=== PATIENT | female | born 1945 | race Caucasian/White ===

== ENCOUNTER 2021-01-14 10:40 | Outpatient (RCR) | payer MEDICARE, OTHER, SELFPAY ==
[2021-01-14 11:07] VITALS: BP 106/40; PULSE 64; TEMP 36.3
--- NOTE | 2021-01-14 13:11 | HP.PCM_ITS ---
History of Present Illness Date of Service: 01/14/21 Chief Complaint: Nonhealing postsurgical wound History of Wound: Ms. Gomez is a 75 who presents to the wound center for continued care of her non healing surgical wound. History of breast cancer initially diagnosed in 2015 and is status post surgery, radiation and chemotherapy. Routine imaging done in September ( 2020) showed 2 nodules for which she had lumpectomy. Lumpectomy was on the 02 of October. 2 days following, she states that she had significant wound breakdown and infection. Was managed with 3 oral antibiotics and subsequently 2 weeks of IV antibiotics. Has been packing wound with sterile gauze daily. Notes some drainage but not significant per patient. Also had 12 hyperbaric oxygen treatments in [place]. She feels well at this time. Denies chills, fever, nausea, vomiting or change in bowel habit. [facility] Medical History (Updated 01/14/21 @ 13:[address] Desiree Michel MD) History of radiation therapy History of right breast cancer Nonhealing surgical wound ROS Constitutional Constitutional: Denies fatigue, fever(s), frequent falls, headache(s) or increased appetite Eyes Eyes: Denies diplopia, discharge from eye(s), exophthalmos, eye pain, floaters, foreign body or halo effect ENT HEENT: Denies headache(s), hearing loss, mouth pain, mucositis, nasal congestion, nasal discharge or nasal obstruction Cardiovascular Cardiovascular: Denies bluish discoloration of hand/feet, chest pain with activity, claudication, clubbing, dyspnea at rest or easily tiring during activity Respiratory/Chest Respiratory/Chest: Denies change in mental status, difficulty clearing secretions, dusky skin, dyspnea or dyspnea on exertion Gastrointestinal Gastrointestinal: Denies anorexia, chewing difficulty, constipation, cramping, dry heaves or dyspepsia Genitourinary Genitourinary: Denies burning urination, difficulty urinating, hematuria, itching, low back pain or nocturia Musculoskeletal Musculoskeletal: Denies abnormal gait, arthralgias, atrophy, joint stiffness or joint swelling Integumentary Integumentary: Denies erythema, nail changes, new lesions, photosensitivity, pruritus or rash Neurologic Neurologic: Denies abnormal gait, burning sensations, confusion, disequilibrium, dizziness or focal weakness Psychiatric Psychiatric: Denies anhedonia, cognitive impairment, confusion, depression, difficulty concentrating or panic attacks Endocrine Endocrinology: Denies change in body appearance, cold intolerance, excessive sweating, increase in ring/shoe/hat size or polydipsia Allergic/Immunologic Allergic/Immunologic: Denies hives, urticaria, eczemia or wheezing Vital Signs Vital Signs Vital Signs: 01/14/21 11:07 Temperature 97.4 F L Temperature Source Temporal Pulse Rate 64 Blood Pressure 106/40 L Blood Pressure Mean 62 Blood Pressure Source Monitor Blood Pressure Position Semi-Fowlers Blood Pressure Location Left Arm Physical Exam Const alert, oriented x3 and no apparent distress General Appearance: cooperative and comfortable HEENT normocephalic and hearing grossly normal bilaterally Head and Scalp: normal to inspection and atraumatic Face and Sinus: normal facial exam Eyes EOMs intact bilaterally Neck General: normal visual inspection Resp Effort and Inspection: able to speak in complete sentences Auscultation: clear to auscultation bilaterally Cardio Rate: regular rate Rhythm: regular rhythm Heart Sounds: S1 normal and S2 normal GI Palpation: soft and no hepatosplenomegaly; Negative for tender Skin Wounds: wounds noted Neuro oriented x3, CN's II-XII intact bilaterally and moves all extremities Psych Appearance: grossly normal Attitude: calm Speech: normal speech Mood & Affect: euthymic mood Debridement Note Debridement Note Post-Debridement Measurements and Additional Note: Post-Debridement Measurements/Treatment - Nurse 1 - General Ulcer Assessment Start: 01/14/21 11:07 Freq: Status: Active Protocol: [email or web address] Activity Type Activity Date Activity User E-Sign Co-Sign Detail Recorded Client Recorded Date Recorded By Document 01/14/21 11:07 EMILIANO [id number] 01/14/21 11:29 EMILIANO 01/14/21 11:07 - Today's Visit Information Type of service Initial Visit Arrival Mode Ambulatory Patient Identification Verified (Name & Yes ) Vital Signs Temperature (97.8 F-99.1 F) 97.4 F L Temperature Source Temporal Pulse Rate (60-100) 64 Pulse Location Monitor Blood Pressure (90/60-120/80) 106/40 L Blood Pressure Mean 62 Source Monitor Position Semi-Fowlers Blood Pressure Location Left Arm History Since Last Visit- (Skip if this is Patient's initial visit) Have you changed medications since your No last visit? Any new allergies or adverse reactions No Had a fall/change in ADL's that may No increase risk of falls Signs or symptoms of abuse and/or No neglect since last visit Have you been in the hospital since your No last visit? Has dressing in place as prescribed Yes Has compression in place as prescribed N/A Has offloadiing in place as prescribed N/A Experienced any changes in pain level or No management Left Footwear Regular Shoe Right Footwear Regular Shoe Pain Scale: 0-10 Numeric Is Patient Pain Free? Yes WC - Nurse 1 - General Ulcer Measurement Start: 01/14/21 11:07 Freq: Status: Active Protocol: Activity Type Activity Date Activity User E-Sign Co-Sign Detail Recorded Client Recorded Date Recorded By Document 01/14/21 11:07 KR [id number] 01/14/21 11:29 KR 01/14/21 11:07 Wound Center Nurse 1 #1Right Breast -Current Size (cm) - Length 0.4 -Current Size (cm) - Width 0.5 -Current Size (cm) - Depth 1 -Total Square Cm 0.20 -Exudate Amt Medium -Exudate Type Serosanguineous -Wound Margin Distinct, Outline Attached -Granulation Amt Medium (34-66%) -Granulation Quality Red -Necrosis Amt Medium (34-66%) -Necrotic Tissue Type Adherent Slough -Texture (Natalie-wound Skin Appearance) Assessed, Scarring -Moisture (Natalie-wound Skin Appearance) No Abnormality, Assessed -Color (Natalie-wound Skin Appearance) No Abnormality, Assessed -Temperature (Natalie-wound Skin No Abnormality Appearance) (Pt Warm) -Tenderness on Palpation (Natalie-wound No Skin Appearance) -Ulcer Cleansing Rinsed/ Irrigated with Saline -Foul Odor after Cleansing No -Anesthetic Used 5% Lidocaine Gel WC - Nurse 2 - General Ulcer CM Notes Start: 01/14/21 11:07 Freq: Status: Active Protocol: Activity Type Activity Date Activity User E-Sign Co-Sign Detail Recorded Client Recorded Date Recorded By Document 01/14/21 11:47 MW [id number] 01/14/21 11:56 MW 01/14/21 11:47 Wound Center Nurse 2 -Time 11:47 -Correct Patient Yes -Correct Side, Site, Position Yes -Correct Procedure Yes -Procedure Performed Yes -Type of Procedure Debridement -Clinical Debridement Subcutaneous -Tissue Removed Subcutaneous -Post Debridement (cm) - Length 0.3 -Post Debridement (cm) - Width 0.6 -Post Debridement (cm) - Depth 1.7 -Total Square (Post) (cm) 0.18 -Area of Debridement (cm) - Length 0.3 -Area of Debridement (cm) - Width 0.6 -Total Square (Area) (cm) 0.18 -Tunneling Yes -Tunneling Position (O'clock) 3 -Tunneling Distance (cm) 1.5 -Undermining/Tunneling No -Circular Undermining No -Wound/Ulcer Outcome Not Healed -Ulcer Cleansing Rinsed/ Irrigated with Saline -Foul Odor after Cleansing No -Bioengineered Tissue No -Bleeding Controlled with Pressure -Offloading No -Treatment Response Procedure Tolerated Well -Debridement - Subq, 1st 20sq cm Yes Pain Scale: 0-10 Numeric Is Patient Pain Free? Yes - Nurse 3 - General Ulcer D/C NN Start: 01/14/21 11:07 Freq: Status: Active Protocol: Activity Type Activity Date Activity User E-Sign Co-Sign Detail Recorded Client Recorded Date Recorded By Document 01/14/21 11:56 MW [id number] 01/14/21 11:57 MW 01/14/21 11:56 Wound Care Nurse 3 #1Right Breast -Ulcer Cleansing Rinsed/ Irrigated with Saline -Foul Odor after Cleansing No -Negative Pressure Wound Therapy N/A -Primary Dressing Applied Nugauze, Iodoform -Primary Dressing Covered/Secured with Dry Gauze, Secured with Tape -Nugauze, Iodoform 1/ 1 Treatment Response Procedure Tolerated Well Pain Scale: 0-10 Numeric Is Patient Pain Free? Yes Teaching: Wound Center Dressing Your Wound -Person Taught Patient -Teaching Method Discussion, Demonstration -Response to teaching Verbalize understanding WC - Visit Discharge Discharge Condition Stable Ambulatory Status Ambulatory Transportation Private Auto Accompanied by self Medication Reconcilliation completed & No provided to patient/care provider Clinical Summary of Care Provided Yes Wound debrided: Right Breast Type of Debridement: Excisional debridement Anesthesia Used: 4% Lidocaine Solution Depth: Down to and including healthy tissue and in the subcutaneous layer Percentage of wound debrided: 100 Instrument Used: - (1mm) Severity: Fat Layer Exposed Amount of bleeding with debridement: Mild Bleeding Controlled with: Pressure Patient tolerated procedure: Patient tolerated procedure well Charges/Coding Visit Charges Office Visits / Consults: [id number] OV L3 New Procedures Integumentary [id number]: [id number] Lori subq tissue 20 sq cm/< Assessment/Plan Assessment/Plan (1) Nonhealing surgical wound: CODE(S): T81.89XA - Other complications of procedures, not elsewhere classified, initial encounter (2) History of radiation therapy: CODE(S): Z92.3 - Personal history of irradiation (3) History of right breast cancer: CODE(S): Z85.3 - Personal history of malignant neoplasm of breast PLAN: Nonhealing postsurgical wound with a history of breast cancer status post radiation and chemotherapy in 2016. Surgery was on 10/02/2020. Debridement done as documented above, procedure was well-tolerated. Switch to iodoform pack daily. Cover with gauze and tape. Vitamin C, zinc and increase protein discussed. Continue other routine/conservative care. Her questions were answered and she was advised to call with any further questions or concerns. Follow-up in a week. This note was generated with [employer] dictation software. It may contain incorrect words, spelling, and punctuation that were not noted in checking the note before signing.
== END 2021-01-20 23:59 ==
LOC: WC 10:40
PROVIDERS: PCP Family Medicine; Visit Provider Internal Medicine
DX: T81.89XA Other complications of procedures, not elsewhere classified, initial encounter (principal); Z92.3 Personal history of irradiation; Z85.3 Personal history of malignant neoplasm of breast
CPT/HCPCS: 11042; 99203; G0463

== ENCOUNTER 2021-02-11 09:45 | Outpatient (RCR) | payer MEDICARE, OTHER, SELFPAY ==
[2021-01-21 00:35] VITALS: BP 106/40; PULSE 64; TEMP 36.3
[2021-01-21 10:37] VITALS: BP 138/64; PULSE 68; RESP 18; TEMP 36
--- NOTE | 2021-01-21 10:59 | PN.PCM_ITS ---
History of Present Illness Date of Service: 01/21/21 Chief Complaint: Nonhealing postsurgical wound History of Wound: Ms. Gomez is a 75 who presents to the wound center for continued care of her non healing surgical wound. History of breast cancer initially diagnosed in 2015 and is status post surgery, radiation and chemotherapy. Routine imaging done in September ( 2020) showed 2 nodules for which she had lumpectomy. Lumpectomy was on the 02 of October. 2 days following, she states that she had significant wound breakdown and infection. Was managed with 3 oral antibiotics and subsequently 2 weeks of IV antibiotics. Has been packing wound with sterile gauze daily. Notes some drainage but not significant per patient. Also had 12 hyperbaric oxygen treatments in [place]. She feels well at this time. Denies chills, fever, nausea, vomiting or change in bowel habit. Subjective Subjective No new concerns at this time. Denies increased pain or drainage. Objective Data Objective Data Vital Signs: Vital Signs Temp Pulse Resp BP 96.8 F L 68 18 138/64 H 01/21/21 10:37 01/21/21 10:37 01/21/21 10:37 01/21/21 10:37 Charges/Coding Procedures Integumentary [id number]: [id number] Lori subq tissue 20 sq cm/< Physical Exam Const alert, oriented x3 and no apparent distress General Appearance: cooperative and comfortable HEENT normocephalic and hearing grossly normal bilaterally Head and Scalp: normal to inspection and atraumatic Face and Sinus: normal facial exam Eyes EOMs intact bilaterally Neck General: normal visual inspection Resp Effort and Inspection: able to speak in complete sentences Auscultation: clear to auscultation bilaterally Cardio Rate: regular rate Rhythm: regular rhythm Heart Sounds: S1 normal and S2 normal GI Palpation: soft and no hepatosplenomegaly; Negative for tender Skin Wounds: wounds noted Neuro oriented x3, CN's II-XII intact bilaterally and moves all extremities Psych Appearance: grossly normal Attitude: calm Speech: normal speech Mood & Affect: euthymic mood Debridement Note Debridement Note Post-Debridement Measurements and Additional Note: Post-Debridement Measurements/Treatment JIN - Nurse 1 - General Ulcer Assessment Start: 01/21/21 10:36 Freq: Status: Active Protocol: STEFANO Activity Type Activity Date Activity User E-Sign Co-Sign Detail Recorded Client Recorded Date Recorded By Document 01/21/21 10:37 DL [id number] 01/21/21 10:44 DL 01/21/21 10:37 WC - Today's Visit Information Type of service Follow-up Visit (Physician/SENIOR ACCOUNT EXECUTIVE ) Arrival Mode Ambulatory Transfer Assistance None Patient Identification Verified (Name & Yes ) Patient Requires Transmission-Based No Precautions Vital Signs Temperature (97.8 F-99.1 F) 96.8 F L Temperature Source Temporal Pulse Rate (60-100) 68 Pulse Location Monitor Respiratory Rate (12-18) 18 Respiratory rate source Observation Blood Pressure (90/60-120/80) 138/64 H Blood Pressure Mean (mm Hg) 88 Source Monitor History Since Last Visit- (Skip if this is Patient's initial visit) Have you changed medications since your No last visit? Any new allergies or adverse reactions No Had a fall/change in ADL's that may No increase risk of falls Signs or symptoms of abuse and/or No neglect since last visit Have you been in the hospital since your No last visit? Has dressing in place as prescribed Yes Has compression in place as prescribed N/A Has offloadiing in place as prescribed N/A Experienced any changes in pain level or No management Pain Scale: 0-10 Numeric Is Patient Pain Free? Yes - Nurse 1 - General Ulcer Measurement Start: 01/21/21 10:36 Freq: Status: Active Protocol: Activity Type Activity Date Activity User E-Sign Co-Sign Detail Recorded Client Recorded Date Recorded By Document 01/21/21 10:37 DL [id number] 01/21/21 10:44 01/21/21 10:37 Wound Center Nurse 1 #1Right Breast -Current Size (cm) - Length 0.2 -Current Size (cm) - Width 0.2 -Current Size (cm) - Depth 2 -Total Square Cm 0.04 -Photo Taken No -Exudate Amt Small -Exudate Type Serosanguineous -Wound Margin Distinct, Outline Attached -Granulation Amt Small (1-33%) -Granulation Quality Red -Necrosis Amt Small (1-33%) -Structure Exposed N/A -Texture (Natalie-wound Skin Appearance) Scarring -Moisture (Natalie-wound Skin Appearance) No Abnormality -Color (Natalie-wound Skin Appearance) No Abnormality -Tenderness on Palpation (Natalie-wound No Skin Appearance) -Ulcer Cleansing Wound Cleanser -Foul Odor after Cleansing No -Anesthetic Used 4% Lidocaine Solution Wound debrided: Right breast Type of Debridement: Excisional debridement Anesthesia Used: 4% Lidocaine Solution Depth: in the subcutaneous layer Percentage of wound debrided: 100 Tissue Removed: Slough and devitalized tissue Amount of bleeding with debridement: Mild Bleeding Controlled with: Pressure Patient tolerated procedure: Patient tolerated procedure well Assessment/Plan Assessment/Plan (1) Nonhealing surgical wound: CODE(S): T81.89XA - Other complications of procedures, not elsewhere classified, initial encounter (2) History of radiation therapy: CODE(S): Z92.3 - Personal history of irradiation (3) History of right breast cancer: CODE(S): Z85.3 - Personal history of malignant neoplasm of breast PLAN: Some improvement in depth. Debridement done as documented above, procedure was well-tolerated. Continue iodoform, pack daily. Cover with gauze and tape. Vitamin C, zinc and increased protein discussed. Continue other routine/conservative care. Her questions were answered and she was advised to call with any further questions or concerns. Follow-up in a week. This note was generated with [employer] dictation software. It may contain incorrect words, spelling, and punctuation that were not noted in checking the note before signing.
[2021-01-28 10:15] VITALS: BP 144/77; PULSE 69; RESP 18; TEMP 36.1
--- NOTE | 2021-01-28 13:47 | PN.PCM_ITS ---
History of Present Illness Date of Service: 01/28/21 Chief Complaint: Nonhealing postsurgical wound History of Wound: Ms. Gomez is a 75 who presents to the wound center for continued care of her non healing surgical wound. History of breast cancer initially diagnosed in 2015 and is status post surgery, radiation and chemotherapy. Routine imaging done in September ( 2020) showed 2 nodules for which she had lumpectomy. Lumpectomy was on the 02 of October. 2 days following, she states that she had significant wound breakdown and infection. Was managed with 3 oral antibiotics and subsequently 2 weeks of IV antibiotics. Has been packing wound with sterile gauze daily. Notes some drainage but not significant per patient. Also had 12 hyperbaric oxygen treatments in [place]. She feels well at this time. Denies chills, fever, nausea, vomiting or change in bowel habit. Subjective Subjective She reports having a lot of difficulty packing the wound. Has also noted more pain and drainage from the site. Objective Data Objective Data Vital Signs: Vital Signs Temp Pulse Resp BP 97.0 F L 69 18 144/77 H 01/28/21 10:15 01/28/21 10:15 01/28/21 10:15 01/28/21 10:15 Charges/Coding Procedures Integumentary 111xxx-113xx: [id number] Lori subq tissue 20 sq cm/< Physical Exam Const alert, oriented x3 and no apparent distress General Appearance: cooperative and comfortable HEENT normocephalic and hearing grossly normal bilaterally Head and Scalp: normal to inspection and atraumatic Face and Sinus: normal facial exam Eyes EOMs intact bilaterally Neck General: normal visual inspection Resp Effort and Inspection: able to speak in complete sentences Auscultation: clear to auscultation bilaterally Cardio Rate: regular rate Rhythm: regular rhythm Heart Sounds: S1 normal and S2 normal GI Palpation: soft and no hepatosplenomegaly; Negative for tender Skin Wounds: wounds noted Neuro oriented x3, CN's II-XII intact bilaterally and moves all extremities Psych Appearance: grossly normal Attitude: calm Speech: normal speech Mood & Affect: euthymic mood Debridement Note Debridement Note Post-Debridement Measurements and Additional Note: Post-Debridement Measurements/Treatment JIN - Nurse 1 - General Ulcer Assessment Start: 01/21/21 10:36 Freq: Status: Active Protocol: STEFANO Activity Type Activity Date Activity User E-Sign Co-Sign Detail Recorded Client Recorded Date Recorded By Document 01/21/21 10:37 [id number] 01/21/21 10:44 DL Document 01/28/21 10:15 MD [id number] 01/28/21 10:20 MD 01/21/21 01/28/21 10:37 10:15 - Today's Visit Information Type of service Follow-up Visit Follow-up Visit (Physician/CONTRACT ADMINISTRATION MANAGER (Physician/CONTRACT ADMINISTRATION MANAGER ) ) Arrival Mode Ambulatory Ambulatory Transfer Assistance None Patient Identification Verified (Name & Yes ) Patient Requires Transmission-Based No Precautions Vital Signs Temperature (97.8 F-99.1 F) 96.8 F L 97.0 F L Temperature Source Temporal Temporal Pulse Rate (60-100) 68 69 Pulse Location Monitor Monitor Respiratory Rate (12-18) 18 18 Respiratory rate source Observation Observation Blood Pressure (90/60-120/80) 138/64 H 144/77 H Blood Pressure Mean (mm Hg) 88 99 Source Monitor Monitor Position Sitting Blood Pressure Location Left Arm History Since Last Visit- (Skip if this is Patient's initial visit) Have you changed medications since your No last visit? Any new allergies or adverse reactions No Had a fall/change in ADL's that may No increase risk of falls Signs or symptoms of abuse and/or No neglect since last visit Have you been in the hospital since your No last visit? Has dressing in place as prescribed Yes Has compression in place as prescribed N/A Has offloadiing in place as prescribed N/A Experienced any changes in pain level or No management Pain Scale: 0-10 Numeric Is Patient Pain Free? Yes - Nurse 1 - General Ulcer Measurement Start: 01/21/21 10:36 Freq: Status: Active Protocol: Activity Type Activity Date Activity User E-Sign Co-Sign Detail Recorded Client Recorded Date Recorded By Document 01/21/21 10:37 DL [id number] 01/21/21 10:44 Document 01/28/21 10:15 MD [id number] 01/28/21 10:20 MD 01/21/21 01/28/21 10:37 10:15 Wound Center Nurse 1 #1Right Breast -Current Size (cm) - Length 0.2 0.3 -Current Size (cm) - Width 0.2 0.5 -Current Size (cm) - Depth 2 1.0 -Total Square Cm 0.04 0.15 -Photo Taken No -Exudate Amt Small Small -Exudate Type Serosanguineous Serosanguineous -Wound Margin Distinct, Flat & Intact Outline Attached -Granulation Amt Small (1-33%) Large (67-100%) -Granulation Quality Red Pale,[place] -Slough/Fibrin No -Necrosis Amt Small (1-33%) -Structure Exposed N/A -Texture (Natalie-wound Skin Appearance) Scarring Assessed -Moisture (Natalie-wound Skin Appearance) No Abnormality Assessed -Color (Natalie-wound Skin Appearance) No Abnormality Assessed -Temperature (Natalie-wound Skin No Abnormality Appearance) (Pt Warm) -Tenderness on Palpation (Natalie-wound No No Skin Appearance) -Ulcer Cleansing Wound Cleanser Rinsed/ Irrigated with Saline -Foul Odor after Cleansing No -Anesthetic Used 4% Lidocaine 4% Lidocaine Solution Solution Lower Limb Edema Present NA WC - Nurse 2 - General Ulcer CM Notes Start: 01/21/21 10:36 Freq: Status: Active Protocol: Activity Type Activity Date Activity User E-Sign Co-Sign Detail Recorded Client Recorded Date Recorded By Document 01/21/21 11:21 PL [id number] 01/21/21 11:22 PL Document 01/28/21 10:34 MW [id number] 01/28/21 10:40 MW 01/21/21 01/28/21 11:21 10:34 Wound Center Nurse 2 #1Right Breast -Time 10:53 10:35 -Correct Patient Yes Yes -Correct Side, Site, Position Yes Yes -Correct Procedure Yes Yes -Procedure Performed Yes Yes -Type of Procedure Debridement Debridement -Clinical Debridement Subcutaneous Subcutaneous -Tissue Removed Subcutaneous Subcutaneous -Post Debridement (cm) - Length 0.2 0.2 -Post Debridement (cm) - Width 0.5 0.5 -Post Debridement (cm) - Depth 1.5 1.3 -Total Square (Post) (cm) 0.10 0.10 -Area of Debridement (cm) - Length 0.2 0.2 -Area of Debridement (cm) - Width 0.5 0.5 -Total Square (Area) (cm) 0.10 0.10 -Tunneling Yes No -Tunneling Position (O'clock) 3 -Tunneling Distance (cm) 1.2 -Undermining/Tunneling No No -Circular Undermining No No -Wound/Ulcer Outcome Not Healed Not Healed -Ulcer Cleansing Rinsed/ Rinsed/ Irrigated with Irrigated with Saline Saline -Foul Odor after Cleansing No No -Bioengineered Tissue No No -Bleeding Controlled with Pressure -Offloading No -Treatment Response Procedure Tolerated Well -Debridement - Subq, 1st 20sq cm Yes Yes Pain Scale: 0-10 Numeric Is Patient Pain Free? Yes Yes WC - Nurse 3 - General Ulcer D/C NN Start: 01/21/21 10:36 Freq: Status: Active Protocol: Activity Type Activity Date Activity User E-Sign Co-Sign Detail Recorded Client Recorded Date Recorded By Document 01/28/21 10:40 MW [id number] 01/28/21 10:40 MW 01/28/21 10:40 Wound Care Nurse 3 #1Right Breast -Ulcer Cleansing Rinsed/ Irrigated with Saline -Foul Odor after Cleansing No -Negative Pressure Wound Therapy N/A -Primary Dressing Applied Promogran Nuvia Matter -Primary Dressing Covered/Secured with Dry Gauze, Secured with Tape -Promogran Nuvia Matter 1 Treatment Response Procedure Tolerated Well Pain Scale: 0-10 Numeric Is Patient Pain Free? Yes Teaching: Wound Center Dressing Your Wound -Person Taught Patient -Teaching Method Discussion, Demonstration -Response to teaching Verbalize understanding WC - Visit Discharge Discharge Condition Stable Ambulatory Status Ambulatory Transportation Private Auto Accompanied by SELF Medication Reconcilliation completed & No provided to patient/care provider Clinical Summary of Care Provided Yes Wound debrided: Right Breast Type of Debridement: Excisional debridement Anesthesia Used: 4% Lidocaine Solution Depth: Down to and including healthy tissue and in the subcutaneous layer Percentage of wound debrided: 100 Instrument Used: - (1mm) Tissue Removed: slough and devitalized tissue Severity: Fat Layer Exposed Amount of bleeding with debridement: Mild Bleeding Controlled with: Pressure Patient tolerated procedure: Patient tolerated procedure well Assessment/Plan Assessment/Plan (1) Nonhealing surgical wound: CODE(S): T81.89XA - Other complications of procedures, not elsewhere classified, initial encounter (2) History of radiation therapy: CODE(S): Z92.3 - Personal history of irradiation (3) History of right breast cancer: CODE(S): Z85.3 - Personal history of malignant neoplasm of breast PLAN: Some improvement in depth. Debridement done as documented above, procedure was well-tolerated. Cultures taken due to pain and increased drainage. Switch to Nuiva daily with gauze over top. Vitamin C, zinc and increased protein recommended. Continue other routine/conservative care. Her questions were answered and she was advised to call with any further questions or concerns. Follow-up in a week. This note was generated with [employer] dictation software. It may contain incorrect words, spelling, and punctuation that were not noted in checking the note before signing.
[2021-02-11 10:18] VITALS: BP 133/72; PULSE 66; RESP 18; TEMP 36.6
--- NOTE | 2021-02-11 11:09 | PN.PCM_ITS ---
History of Present Illness Date of Service: 02/11/21 Chief Complaint: Nonhealing postsurgical wound History of Wound: Ms. Gomez is a 75 who presents to the wound center for continued care of her non healing surgical wound. History of breast cancer initially diagnosed in 2015 and is status post surgery, radiation and chemotherapy. Routine imaging done in September ( 2020) showed 2 nodules for which she had lumpectomy. Lumpectomy was on the 02 of October. 2 days following, she states that she had significant wound breakdown and infection. Was managed with 3 oral antibiotics and subsequently 2 weeks of IV antibiotics. Has been packing wound with sterile gauze daily. Notes some drainage but not significant per patient. Also had 12 hyperbaric oxygen treatments in [place]. She feels well at this time. Denies chills, fever, nausea, vomiting or change in bowel habit. Subjective Subjective No acute concerns at this time. Tolerating Nuvia well easier to pack the wound. Objective Data Objective Data Vital Signs: Vital Signs Temp Pulse Resp BP 97.9 F 66 18 133/72 H 02/11/21 10:18 02/11/21 10:18 02/11/21 10:18 02/11/21 10:18 Lab / Micro Data Micro: Microbiology 01/28/21 10:40 Wound - Breast, Right Gram Stain - Final 01/28/21 10:40 Wound - Breast, Right Wound Culture - Final Streptococcus agalactiae (B) Staphylococcus epidermidis 01/28/21 10:40 Wound - Breast, Right Anaerobic Culture - Final No anaerobic bacteria isolated. Charges/Coding Procedures Integumentary 111xxx-113xx: [id number] Lori subq tissue 20 sq cm/< Physical Exam Const alert, oriented x3 and no apparent distress General Appearance: cooperative and comfortable HEENT normocephalic and hearing grossly normal bilaterally Head and Scalp: normal to inspection and atraumatic Face and Sinus: normal facial exam Eyes EOMs intact bilaterally Neck General: normal visual inspection Resp Effort and Inspection: able to speak in complete sentences Auscultation: clear to auscultation bilaterally Cardio Rate: regular rate Rhythm: regular rhythm Heart Sounds: S1 normal and S2 normal GI Palpation: soft and no hepatosplenomegaly; Negative for tender Skin Wounds: wounds noted Neuro oriented x3, CN's II-XII intact bilaterally and moves all extremities Psych Appearance: grossly normal Attitude: calm Speech: normal speech Mood & Affect: euthymic mood Debridement Note Debridement Note Post-Debridement Measurements and Additional Note: Post-Debridement Measurements/Treatment JIN - Nurse 1 - General Ulcer Assessment Start: 01/21/21 10:36 Freq: Status: Active Protocol: STEFANO Activity Type Activity Date Activity User E-Sign Co-Sign Detail Recorded Client Recorded Date Recorded By Document 01/21/21 10:37 DL [id number] 01/21/21 10:44 DL Document 01/28/21 10:15 MT [id number] 01/28/21 10:20 MT Document 02/11/21 10:18 DL [id number] 02/11/21 10:23 DL 01/21/21 01/28/21 02/11/21 10:37 10:15 10:18 WC - Today's Visit Information Type of service Follow-up Visit Follow-up Visit Follow-up Visit (Physician/DIRECTOR OF DONOR RELATIONS (Physician/DIRECTOR OF DONOR RELATIONS (Physician/DIRECTOR OF DONOR RELATIONS ) ) ) Arrival Mode Ambulatory Ambulatory Ambulatory Transfer Assistance None None Patient Identification Verified (Name & Yes Yes ) Patient Requires Transmission-Based No No Precautions Vital Signs Temperature (97.8 F-99.1 F) 96.8 F L 97.0 F L 97.9 F Temperature Source Temporal Temporal Temporal Pulse Rate (60-100) 68 69 66 Pulse Location Monitor Monitor Monitor Respiratory Rate (12-18) 18 18 18 Respiratory rate source Observation Observation Observation Blood Pressure (90/60-120/80) 138/64 H 144/77 H 133/72 H Blood Pressure Mean (mm Hg) 88 99 92 Source Monitor Monitor Monitor Position Sitting Blood Pressure Location Left Arm History Since Last Visit- (Skip if this is Patient's initial visit) Have you changed medications since your No No last visit? Any new allergies or adverse reactions No No Had a fall/change in ADL's that may No No increase risk of falls Signs or symptoms of abuse and/or No No neglect since last visit Have you been in the hospital since your No No last visit? Has dressing in place as prescribed Yes Yes Has compression in place as prescribed N/A N/A Has offloadiing in place as prescribed N/A N/A Experienced any changes in pain level or No No management Pain Scale: 0-10 Numeric Is Patient Pain Free? Yes Yes JIN - Nurse 1 - General Ulcer Measurement Start: 01/21/21 10:36 Freq: Status: Active Protocol: Activity Type Activity Date Activity User E-Sign Co-Sign Detail Recorded Client Recorded Date Recorded By Document 01/21/21 10:37 DL [id number] 01/21/21 10:44 DL Document 01/28/21 10:15 MT [id number] 01/28/21 10:20 MT Document 02/11/21 10:18 DL [id number] 02/11/21 10:23 DL 01/21/21 01/28/21 02/11/21 10:37 10:15 10:18 Wound Center Nurse 1 #1Right Breast -Current Size (cm) - Length 0.2 0.3 0.2 -Current Size (cm) - Width 0.2 0.5 0.2 -Current Size (cm) - Depth 2 1.0 1.1 -Total Square Cm 0.04 0.15 0.04 -Photo Taken No No -Exudate Amt Small Small Small -Exudate Type Serosanguineous Serosanguineous Serosanguineous -Wound Margin Distinct, Flat & Intact Distinct, Outline Outline Attached Attached -Granulation Amt Small (1-33%) Large (67-100%) Small (1-33%) -Granulation Quality Red Pale,[place] -Slough/Fibrin No -Necrosis Amt Small (1-33%) Small (1-33%) -Necrotic Tissue Type Adherent Slough -Structure Exposed N/A N/A -Texture (Natalie-wound Skin Appearance) Scarring Assessed Scarring -Moisture (Natalie-wound Skin Appearance) No Abnormality Assessed Dry/Scaly -Color (Natalie-wound Skin Appearance) No Abnormality Assessed No Abnormality -Temperature (Natalie-wound Skin No Abnormality No Abnormality Appearance) (Pt Warm) (Pt Warm) -Tenderness on Palpation (Natalie-wound No No No Skin Appearance) -Ulcer Cleansing Wound Cleanser Rinsed/ Wound Cleanser Irrigated with Saline -Foul Odor after Cleansing No No -Anesthetic Used 4% Lidocaine 4% Lidocaine 4% Lidocaine Solution Solution Solution Lower Limb Edema Present NA WC - Nurse 2 - General Ulcer CM Notes Start: 01/21/21 10:36 Freq: Status: Active Protocol: Activity Type Activity Date Activity User E-Sign Co-Sign Detail Recorded Client Recorded Date Recorded By Document 01/21/21 11:21 PL [id number] 01/21/21 11:22 PL Document 01/28/21 10:34 MW [id number] 01/28/21 10:40 MW Document 02/11/21 10:34 MW [id number] 02/11/21 10:38 MW 01/21/21 01/28/21 02/11/21 11:21 10:34 10:34 Wound Center Nurse 2 #1Right Breast -Time 10:53 10:35 10:34 -Correct Patient Yes Yes Yes -Correct Side, Site, Position Yes Yes Yes -Correct Procedure Yes Yes Yes -Procedure Performed Yes Yes Yes -Type of Procedure Debridement Debridement Debridement -Clinical Debridement Subcutaneous Subcutaneous Subcutaneous -Tissue Removed Subcutaneous Subcutaneous Subcutaneous -Post Debridement (cm) - Length 0.2 0.2 0.2 -Post Debridement (cm) - Width 0.5 0.5 0.3 -Post Debridement (cm) - Depth 1.5 1.3 1.2 -Total Square (Post) (cm) 0.10 0.10 0.06 -Area of Debridement (cm) - Length 0.2 0.2 0.2 -Area of Debridement (cm) - Width 0.5 0.5 0.3 -Total Square (Area) (cm) 0.10 0.10 0.06 -Tunneling Yes No No -Tunneling Position (O'clock) 3 -Tunneling Distance (cm) 1.2 -Undermining/Tunneling No No No -Circular Undermining No No No -Wound/Ulcer Outcome Not Healed Not Healed Not Healed -Ulcer Cleansing Rinsed/ Rinsed/ Rinsed/ Irrigated with Irrigated with Irrigated with Saline Saline Saline -Foul Odor after Cleansing No No No -Bioengineered Tissue No No No -Bleeding Controlled with Pressure Pressure -Offloading No No -Treatment Response Procedure Procedure Tolerated Well Tolerated Well -Debridement - Subq, 1st 20sq cm Yes Yes Yes Pain Scale: 0-10 Numeric Is Patient Pain Free? Yes Yes Yes WC - Nurse 3 - General Ulcer D/C NN Start: 01/21/21 10:36 Freq: Status: Active Protocol: Activity Type Activity Date Activity User E-Sign Co-Sign Detail Recorded Client Recorded Date Recorded By Document 01/28/21 10:40 MW [id number] 01/28/21 10:40 MW Document 02/11/21 10:38 MW [id number] 02/11/21 10:38 MW 01/28/21 02/11/21 10:40 10:38 Wound Care Nurse 3 #1Right Breast -Ulcer Cleansing Rinsed/ Rinsed/ Irrigated with Irrigated with Saline Saline -Foul Odor after Cleansing No No -Negative Pressure Wound Therapy N/A N/A -Primary Dressing Applied Promogran Promogran Nuvia Matter -Primary Dressing Covered/Secured with Dry Gauze, Dry Gauze Secured with Tape -Promogran 2 -Promogran Nuvia Matter 1 Treatment Response Procedure Procedure Tolerated Well Tolerated Well Pain Scale: 0-10 Numeric Is Patient Pain Free? Yes Yes Teaching: Wound Center Dressing Your Wound -Person Taught Patient Patient -Teaching Method Discussion, Discussion, Demonstration Demonstration -Response to teaching Verbalize Verbalize understanding understanding WC - Visit Discharge Discharge Condition Stable Stable Ambulatory Status Ambulatory Ambulatory Transportation Private Auto Private Auto Accompanied by SELF self Medication Reconcilliation completed & No No provided to patient/care provider Clinical Summary of Care Provided Yes Yes Wound debrided: Right breast Type of Debridement: Excisional debridement Anesthesia Used: 4% Lidocaine Solution Depth: Down to and including healthy tissue and in the subcutaneous layer Percentage of wound debrided: 100 Instrument Used: - (1 mm) Tissue Removed: Slough and devitalized tissue Severity: Fat Layer Exposed Amount of bleeding with debridement: Mild Bleeding Controlled with: Pressure Patient tolerated procedure: Patient tolerated procedure well Assessment/Plan Assessment/Plan (1) Nonhealing surgical wound: CODE(S): T81.89XA - Other complications of procedures, not elsewhere classified, initial encounter (2) History of radiation therapy: CODE(S): Z92.3 - Personal history of irradiation (3) History of right breast cancer: CODE(S): Z85.3 - Personal history of malignant neoplasm of breast PLAN: Improving. Debridement done as documented above, procedure was well-tolerated. Culture with minimal growth, possible contaminant. Hold off antibiotics. Switch to Promogran daily. Cover with gauze and tape. Vitamin C, zinc and increased protein recommended. Continue other routine/conservative care. Her questions were answered and she was advised to call with any further questions or concerns. Follow-up in a week. This note was generated with [employer] software. It may contain incorrect words, spelling, and punctuation that were not noted in checking the note before signing.
== END 2021-02-20 23:59 ==
LOC: WC 09:45
PROVIDERS: PCP Family Medicine; Visit Provider Internal Medicine
DX: T81.89XA Other complications of procedures, not elsewhere classified, initial encounter (principal); Z92.3 Personal history of irradiation; Z85.3 Personal history of malignant neoplasm of breast
CPT/HCPCS: 11042; 87070; 87075; 87077; 87186; 87205

== ENCOUNTER 2021-03-18 09:30 | Outpatient (RCR) | payer MEDICARE, OTHER, SELFPAY ==
[2021-02-21 00:34] VITALS: BP 133/72; PULSE 66; RESP 18; TEMP 36.6
[2021-03-04 09:44] VITALS: BP 108/66; PULSE 68; RESP 18; TEMP 36.3
--- NOTE | 2021-03-04 12:38 | PN.PCM_ITS ---
History of Present Illness Date of Service: 03/04/21 Chief Complaint: Nonhealing postsurgical wound History of Wound: Ms. Gomez is a 75 who presents to the wound center for continued care of her non healing surgical wound. History of breast cancer initially diagnosed in 2015 and is status post surgery, radiation and chemotherapy. Routine imaging done in September ( 2020) showed 2 nodules for which she had lumpectomy. Lumpectomy was on the 02 of October. 2 days following, she states that she had significant wound breakdown and infection. Was managed with 3 oral antibiotics and subsequently 2 weeks of IV antibiotics. Has been packing wound with sterile gauze daily. Notes some drainage but not significant per patient. Also had 12 hyperbaric oxygen treatments in [place]. She feels well at this time. Denies chills, fever, nausea, vomiting or change in bowel habit. Subjective Subjective Not been here in over 2 weeks, was away in [place]. Did see her surgeon and no concerns were noted per patient. Has been applying Promogran daily as instructed. She noted mild increase in drainage but otherwise wound is said to have been stable. Objective Data Objective Data Vital Signs: Vital Signs Temp Pulse Resp BP 97.3 F L 68 18 108/66 03/04/21 09:44 03/04/21 09:44 03/04/21 09:44 03/04/21 09:44 Charges/Coding Procedures Integumentary 111xxx-113xx: [id number] Lori subq tissue 20 sq cm/< Physical Exam Const alert, oriented x3 and no apparent distress General Appearance: cooperative and comfortable HEENT normocephalic and hearing grossly normal bilaterally Head and Scalp: normal to inspection and atraumatic Face and Sinus: normal facial exam Eyes EOMs intact bilaterally Neck General: normal visual inspection Resp Effort and Inspection: able to speak in complete sentences GI Palpation: soft and no hepatosplenomegaly; Negative for tender Skin Wounds: wounds noted Neuro oriented x3, CN's II-XII intact bilaterally and moves all extremities Psych Appearance: grossly normal Attitude: calm Speech: normal speech Mood & Affect: euthymic mood Debridement Note Debridement Note Post-Debridement Measurements and Additional Note: Post-Debridement Measurements/Treatment JIN - Nurse 1 - General Ulcer Assessment Start: 03/04/21 09:44 Freq: Status: Active Protocol: STEFANO Activity Type Activity Date Activity User E-Sign Co-Sign Detail Recorded Client Recorded Date Recorded By Document 03/04/21 09:44 DL [id number] 03/04/21 09:50 DL 03/04/21 09:44 WC - Today's Visit Information Type of service Follow-up Visit (Physician/CLERK STENOGRAPHER ) Arrival Mode Ambulatory Transfer Assistance None Patient Identification Verified (Name & Yes ) Patient Requires Transmission-Based No Precautions Vital Signs Temperature (97.8 F-99.1 F) 97.3 F L Temperature Source Temporal Pulse Rate (60-100) 68 Pulse Location Monitor Respiratory Rate (12-18) 18 Respiratory rate source Observation Blood Pressure (90/60-120/80) 108/66 Blood Pressure Mean (mm Hg) 80 Source Monitor History Since Last Visit- (Skip if this is Patient's initial visit) Have you changed medications since your No last visit? Any new allergies or adverse reactions No Had a fall/change in ADL's that may No increase risk of falls Signs or symptoms of abuse and/or No neglect since last visit Have you been in the hospital since your No last visit? Has dressing in place as prescribed Yes Has compression in place as prescribed N/A Has offloadiing in place as prescribed N/A Experienced any changes in pain level or No management Pain Scale: 0-10 Numeric Is Patient Pain Free? Yes WC - Nurse 1 - General Ulcer Measurement Start: 03/04/21 09:44 Freq: Status: Active Protocol: Activity Type Activity Date Activity User E-Sign Co-Sign Detail Recorded Client Recorded Date Recorded By Document 03/04/21 09:44 DL [id number] 03/04/21 09:50 DL 03/04/21 09:44 Wound Center Nurse 1 #1Right Breast -Current Size (cm) - Length 0.2 -Current Size (cm) - Width 0.2 -Current Size (cm) - Depth 0.2 -Total Square Cm 0.04 -Photo Taken No -Exudate Amt None Present -Wound Margin Flat & Intact -Granulation Amt Small (1-33%) -Granulation Quality Red -Necrosis Amt None Present (0 %) -Structure Exposed N/A -Texture (Natalie-wound Skin Appearance) Scarring -Moisture (Natalie-wound Skin Appearance) No Abnormality -Color (Natalie-wound Skin Appearance) No Abnormality -Tenderness on Palpation (Natalie-wound No Skin Appearance) -Ulcer Cleansing Wound Cleanser -Foul Odor after Cleansing No -Anesthetic Used 4% Lidocaine Solution - Nurse 2 - General Ulcer CM Notes Start: 03/04/21 09:44 Freq: Status: Active Protocol: Activity Type Activity Date Activity User E-Sign Co-Sign Detail Recorded Client Recorded Date Recorded By Document 03/04/21 10:12 WI [id number] 03/04/21 10:17 WI 03/04/21 10:12 Wound Center Nurse 2 -Time 10:13 -Correct Patient Yes -Correct Side, Site, Position Yes -Correct Procedure Yes -Procedure Performed Yes -Type of Procedure Debridement -Clinical Debridement Subcutaneous -Tissue Removed Subcutaneous -Post Debridement (cm) - Length 0.2 -Post Debridement (cm) - Width 0.3 -Post Debridement (cm) - Depth 1.5 -Total Square (Post) (cm) 0.06 -Area of Debridement (cm) - Length 0.2 -Area of Debridement (cm) - Width 0.3 -Total Square (Area) (cm) 0.06 -Tunneling No -Undermining/Tunneling No -Circular Undermining No -Wound/Ulcer Outcome Not Healed -Ulcer Cleansing Rinsed/ Irrigated with Saline -Foul Odor after Cleansing No -Bioengineered Tissue No -Bleeding Controlled with Pressure -Offloading No -Treatment Response Procedure Tolerated Well -Debridement - Subq, 1st 20sq cm Yes Pain Scale: 0-10 Numeric Is Patient Pain Free? Yes - Nurse 3 - General Ulcer D/C NN Start: 03/04/21 09:44 Freq: Status: Active Protocol: Activity Type Activity Date Activity User E-Sign Co-Sign Detail Recorded Client Recorded Date Recorded By Document 03/04/21 10:17 WI [id number] 03/04/21 10:20 [place] 03/04/21 10:17 Wound Care Nurse 3 #1Right Breast -Primary Dressing Applied Promogran -Primary Dressing Covered/Secured with Dry Gauze, Secured with Tape -Promogran 1 - Visit Discharge Discharge Condition Stable Ambulatory Status Ambulatory Transportation Private Auto Medication Reconcilliation completed & No provided to patient/care provider Clinical Summary of Care Provided Yes Notes: change dressing daily. Wound debrided: Right Breast Type of Debridement: Excisional debridement Anesthesia Used: 4% Lidocaine Solution Depth: Down to and including healthy tissue and in the subcutaneous layer Percentage of wound debrided: 100 Instrument Used: - (1mm) Severity: Fat Layer Exposed Amount of bleeding with debridement: Mild Bleeding Controlled with: Pressure Patient tolerated procedure: Patient tolerated procedure well Assessment/Plan Assessment/Plan (1) Nonhealing surgical wound: CODE(S): T81.89XA - Other complications of procedures, not elsewhere classified, initial encounter (2) History of radiation therapy: CODE(S): Z92.3 - Personal history of irradiation (3) History of right breast cancer: CODE(S): Z85.3 - Personal history of malignant neoplasm of breast PLAN: Some worsening in depth. Has not been here in 2 weeks. Debridement done as documented above, procedure was well-tolerated. Culture with minimal growth, possible contaminant. Continue Promogran daily. Moisten with saline. Cover with gauze and tape. Vitamin C, zinc and increased protein recommended. Continue other routine/conservative care. Her questions were answered and she was advised to call with any further questions or concerns. Follow-up in 2 weeks. This note was generated with [employer] dictation software. It may contain incorrect words, spelling, and punctuation that were not noted in checking the note before signing.
[2021-03-18 09:24] VITALS: BP 117/67; RESP 18; TEMP 36.9
--- NOTE | 2021-03-18 10:03 | PN.PCM_ITS ---
History of Present Illness Date of Service: 03/18/21 Chief Complaint: Nonhealing postsurgical wound History of Wound: Ms. Gomez is a 75 who presents to the wound center for continued care of her non healing surgical wound. History of breast cancer initially diagnosed in 2015 and is status post surgery, radiation and chemotherapy. Routine imaging done in September ( 2020) showed 2 nodules for which she had lumpectomy. Lumpectomy was on the 02 of October. 2 days following, she states that she had significant wound breakdown and infection. Was managed with 3 oral antibiotics and subsequently 2 weeks of IV antibiotics. Has been packing wound with sterile gauze daily. Notes some drainage but not significant per patient. Also had 12 hyperbaric oxygen treatments in [place]. She feels well at this time. Denies chills, fever, nausea, vomiting or change in bowel habit. Subjective Subjective No new concerns at this time. Denies any significant drainage. Objective Data Objective Data Vital Signs: Vital Signs Temp Pulse Resp BP 98.5 F 68 18 117/67 03/18/21 09:24 03/04/21 09:44 03/18/21 09:24 03/18/21 09:24 Charges/Coding Procedures Integumentary 111xxx-113xx: [id number] Lori subq tissue 20 sq cm/< Physical Exam Const alert, oriented x3 and no apparent distress General Appearance: cooperative and comfortable HEENT normocephalic and hearing grossly normal bilaterally Head and Scalp: normal to inspection and atraumatic Face and Sinus: normal facial exam Eyes EOMs intact bilaterally Neck General: normal visual inspection Resp Effort and Inspection: able to speak in complete sentences GI Palpation: soft; Negative for tender Skin Wounds: wounds noted Neuro oriented x3, CN's II-XII intact bilaterally and moves all extremities Psych Appearance: grossly normal Attitude: calm Speech: normal speech Mood & Affect: euthymic mood Debridement Note Debridement Note Post-Debridement Measurements and Additional Note: Post-Debridement Measurements/Treatment WC - Nurse 1 - General Ulcer Assessment Start: 03/04/21 09:44 Freq: Status: Active Protocol: JIN.ROMA Activity Type Activity Date Activity User E-Sign Co-Sign Detail Recorded Client Recorded Date Recorded By Document 03/04/21 09:44 DL [id number] 03/04/21 09:50 DL Document 03/18/21 09:24 DL [id number] 03/18/21 09:29 DL 03/04/21 03/18/21 09:44 09:24 - Today's Visit Information Type of service Follow-up Visit Follow-up Visit (Physician/CEMENT MASON APPRENTICE (Physician/CEMENT MASON APPRENTICE ) ) Arrival Mode Ambulatory Ambulatory Transfer Assistance None None Patient Identification Verified (Name & Yes Yes ) Patient Requires Transmission-Based No No Precautions Vital Signs Temperature (97.8 F-99.1 F) 97.3 F L 98.5 F Temperature Source Temporal Temporal Pulse Rate (60-100) 68 Pulse Location Monitor Respiratory Rate (12-18) 18 18 Respiratory rate source Observation Observation Blood Pressure (90/60-120/80) 108/66 117/67 Blood Pressure Mean (mm Hg) 80 83 Source Monitor Monitor History Since Last Visit- (Skip if this is Patient's initial visit) Have you changed medications since your No No last visit? Any new allergies or adverse reactions No No Had a fall/change in ADL's that may No No increase risk of falls Signs or symptoms of abuse and/or No No neglect since last visit Have you been in the hospital since your No No last visit? Has dressing in place as prescribed Yes Yes Has compression in place as prescribed N/A Yes Has offloadiing in place as prescribed N/A N/A Experienced any changes in pain level or No No management Pain Scale: 0-10 Numeric Is Patient Pain Free? Yes Yes - Nurse 1 - General Ulcer Measurement Start: 03/04/21 09:44 Freq: Status: Active Protocol: Activity Type Activity Date Activity User E-Sign Co-Sign Detail Recorded Client Recorded Date Recorded By Document 03/04/21 09:44 DL [id number] 03/04/21 09:50 DL Document 03/18/21 09:24 [id number] 03/18/21 09:29 DL 03/04/21 03/18/21 09:44 09:24 Wound Center Nurse 1 #1Right Breast -Current Size (cm) - Length 0.2 0.2 -Current Size (cm) - Width 0.2 0.2 -Current Size (cm) - Depth 0.2 0.6 -Total Square Cm 0.04 0.04 -Photo Taken No No -Exudate Amt None Present None Present -Wound Margin Flat & Intact Distinct, Outline Attached -Granulation Amt Small (1-33%) None Present (0 %) -Granulation Quality Red -Necrosis Amt None Present (0 None Present (0 %) %) -Structure Exposed N/A -Texture (Natalie-wound Skin Appearance) Scarring Assessed, Scarring -Moisture (Natalie-wound Skin Appearance) No Abnormality No Abnormality, Assessed -Color (Natalie-wound Skin Appearance) No Abnormality No Abnormality, Assessed -Temperature (Natalie-wound Skin No Abnormality Appearance) (Pt Warm) -Tenderness on Palpation (Natalie-wound No No Skin Appearance) -Ulcer Cleansing Wound Cleanser Rinsed/ Irrigated with Saline -Foul Odor after Cleansing No No -Anesthetic Used 4% Lidocaine 5% Lidocaine Solution Gel WC - Nurse 2 - General Ulcer CM Notes Start: 03/04/21 09:44 Freq: Status: Active Protocol: Activity Type Activity Date Activity User E-Sign Co-Sign Detail Recorded Client Recorded Date Recorded By Document 03/04/21 10:12 MT [id number] 03/04/21 10:17 MT Document 03/18/21 09:49 MW [id number] 03/18/21 09:53 MW 03/04/21 03/18/21 10:12 09:49 Wound Center Nurse 2 #1Right Breast -Time 10:13 09:51 -Correct Patient Yes Yes -Correct Side, Site, Position Yes Yes -Correct Procedure Yes Yes -Procedure Performed Yes Yes -Type of Procedure Debridement Debridement -Clinical Debridement Subcutaneous Subcutaneous -Tissue Removed Subcutaneous Subcutaneous -Post Debridement (cm) - Length 0.2 0.2 -Post Debridement (cm) - Width 0.3 0.3 -Post Debridement (cm) - Depth 1.5 1.0 -Total Square (Post) (cm) 0.06 0.06 -Area of Debridement (cm) - Length 0.2 0.2 -Area of Debridement (cm) - Width 0.3 0.3 -Total Square (Area) (cm) 0.06 0.06 -Tunneling No Yes -Tunneling Position (O'clock) 13 -Tunneling Distance (cm) 1.3 -Undermining/Tunneling No No -Circular Undermining No No -Wound/Ulcer Outcome Not Healed Not Healed -Ulcer Cleansing Rinsed/ Rinsed/ Irrigated with Irrigated with Saline Saline -Foul Odor after Cleansing No No -Bioengineered Tissue No No -Bleeding Controlled with Pressure Pressure -Offloading No No -Treatment Response Procedure Procedure Tolerated Well Tolerated Well -Debridement - Subq, 1st 20sq cm Yes Yes Pain Scale: 0-10 Numeric Is Patient Pain Free? Yes Yes - Nurse 3 - General Ulcer D/C NN Start: 03/04/21 09:44 Freq: Status: Active Protocol: Activity Type Activity Date Activity User E-Sign Co-Sign Detail Recorded Client Recorded Date Recorded By Document 03/04/21 10:17 MT [id number] 03/04/21 10:20 MT Document 03/18/21 09:54 MW [id number] 03/18/21 09:55 MW 03/04/21 03/18/21 10:17 09:54 Wound Care Nurse 3 #1Right Breast -Ulcer Cleansing Rinsed/ Irrigated with Saline -Foul Odor after Cleansing No -Negative Pressure Wound Therapy N/A -Primary Dressing Applied Promogran Promogran -Primary Dressing Covered/Secured with Dry Gauze, Dry Gauze Secured with Tape -Promogran 1 1 Treatment Response Procedure Tolerated Well Pain Scale: 0-10 Numeric Is Patient Pain Free? Yes Teaching: Wound Center Dressing Your Wound -Person Taught Patient -Teaching Method Discussion, Demonstration -Response to teaching Verbalize understanding WC - Visit Discharge Discharge Condition Stable Stable Ambulatory Status Ambulatory Ambulatory Transportation Private Auto Private Auto Accompanied by self Medication Reconcilliation completed & No No provided to patient/care provider Clinical Summary of Care Provided Yes Yes Notes: change dressing daily. Wound debrided: Right breast Type of Debridement: Excisional debridement Anesthesia Used: 4% Lidocaine Solution Depth: Down to and including healthy tissue and in the subcutaneous layer Percentage of wound debrided: 100 Tissue Removed: Slough and devitalized tissue Severity: Fat Layer Exposed Amount of bleeding with debridement: Mild Bleeding Controlled with: Pressure Patient tolerated procedure: Patient tolerated procedure well Assessment/Plan Assessment/Plan (1) Nonhealing surgical wound: CODE(S): T81.89XA - Other complications of procedures, not elsewhere classified, initial encounter (2) History of radiation therapy: CODE(S): Z92.3 - Personal history of irradiation (3) History of right breast cancer: CODE(S): Z85.3 - Personal history of malignant neoplasm of breast PLAN: Debridement done as documented above, procedure was well-tolerated. Improvement in depth noted and as above, no significant drainage. Continue Promogran daily. Moisten with saline. Cover with gauze and tape. Vitamin C, zinc and increased protein recommended. Continue other routine/conservative care. Her questions were answered and she was advised to call with any further questions or concerns. Follow-up in 2 weeks. This note was generated with [employer] dictation software. It may contain incorrect words, spelling, and punctuation that were not noted in checking the note before signing.
== END 2021-03-23 23:59 ==
LOC: WC 09:30
PROVIDERS: PCP Family Medicine; Visit Provider Internal Medicine
DX: T81.89XA Other complications of procedures, not elsewhere classified, initial encounter (principal); Z85.3 Personal history of malignant neoplasm of breast; Z92.3 Personal history of irradiation
CPT/HCPCS: 11042

== ENCOUNTER 2021-04-22 09:15 | Outpatient (RCR) | payer MEDICARE, OTHER, SELFPAY ==
[2021-03-24 00:37] VITALS: BP 117/67; PULSE 68; RESP 18; TEMP 36.9
[2021-04-01 08:51] VITALS: BP 139/63; PULSE 74; TEMP 36.6
--- NOTE | 2021-04-01 10:28 | PN.PCM_ITS ---
History of Present Illness Date of Service: 04/01/21 Chief Complaint: Nonhealing postsurgical wound History of Wound: Ms. Gomez is a 75 who presents to the wound center for continued care of her non healing surgical wound. History of breast cancer initially diagnosed in 2015 and is status post surgery, radiation and chemotherapy. Routine imaging done in September ( 2020) showed 2 nodules for which she had lumpectomy. Lumpectomy was on the 02 of October. 2 days following, she states that she had significant wound breakdown and infection. Was managed with 3 oral antibiotics and subsequently 2 weeks of IV antibiotics. Has been packing wound with sterile gauze daily. Notes some drainage but not significant per patient. Also had 12 hyperbaric oxygen treatments in [place]. She feels well at this time. Denies chills, fever, nausea, vomiting or change in bowel habit. Subjective Subjective Minimal area. Has been having a little difficulty packing wound. Objective Data Objective Data Vital Signs: Vital Signs Temp Pulse Resp BP 97.9 F 74 18 139/63 H 04/01/21 08:51 04/01/21 08:51 03/24/21 00:37 04/01/21 08:51 Charges/Coding Visit Charges Office Visits / Consults: [id number] OV L3 Est Physical Exam Const alert, oriented x3 and no apparent distress General Appearance: cooperative and comfortable HEENT normocephalic and hearing grossly normal bilaterally Head and Scalp: normal to inspection and atraumatic Face and Sinus: normal facial exam Eyes EOMs intact bilaterally Neck General: normal visual inspection Resp Effort and Inspection: able to speak in complete sentences GI Palpation: soft; Negative for tender Skin Wounds: wounds noted Neuro oriented x3, CN's II-XII intact bilaterally and moves all extremities Psych Appearance: grossly normal Attitude: calm Speech: normal speech Mood & Affect: euthymic mood Debridement Note Debridement Note Post-Debridement Measurements and Additional Note: Post-Debridement Measurements/Treatment JIN - Nurse 1 - General Ulcer Assessment Start: 04/01/21 08:51 Freq: Status: Active Protocol: STEFANO Activity Type Activity Date Activity User E-Sign Co-Sign Detail Recorded Client Recorded Date Recorded By Document 04/01/21 08:51 EMILIANO [id number] 04/01/21 08:55 EMILIANO 04/01/21 08:51 JIN - Today's Visit Information Type of service Follow-up Visit (Physician/HOTEL ASSISTANT GENERAL MANAGER ) Arrival Mode Ambulatory Patient Identification Verified (Name & Yes ) Patient Requires Transmission-Based No Precautions Safety Precautions NA Vital Signs Temperature (97.8 F-99.1 F) 97.9 F Temperature Source Temporal Pulse Rate (60-100) 74 Pulse Location Monitor Blood Pressure (90/60-120/80) 139/63 H Blood Pressure Mean (mm Hg) 88 Source Monitor History Since Last Visit- (Skip if this is Patient's initial visit) Have you changed medications since your No last visit? Any new allergies or adverse reactions No Had a fall/change in ADL's that may No increase risk of falls Signs or symptoms of abuse and/or No neglect since last visit Have you been in the hospital since your No last visit? Has dressing in place as prescribed Yes Has compression in place as prescribed N/A Has offloadiing in place as prescribed N/A Experienced any changes in pain level or No management Left Footwear Regular Shoe Right Footwear Regular Shoe WC - Nurse 1 - General Ulcer Measurement Start: 04/01/21 08:51 Freq: Status: Active Protocol: Activity Type Activity Date Activity User E-Sign Co-Sign Detail Recorded Client Recorded Date Recorded By Document 04/01/21 08:51 EMILIANO [id number] 04/01/21 08:55 EMILIANO 04/01/21 08:51 Wound Center Nurse 1 #1Right Breast -Current Size (cm) - Length 0.2 -Current Size (cm) - Width 0.3 -Current Size (cm) - Depth 0.7 -Total Square Cm 0.06 -Photo Taken No -Epithelialization None Present -Tunneling Yes -Tunneling Position (O'clock) 1 -Tunneling Distance (cm) 1 -Undermining/Tunneling No -Circular Undermining No -Change in Wound Grade/Stage No -Wound Margin Thickened & Rolled Under -Granulation Quality N/A -Slough/Fibrin No -Structure Exposed N/A -Texture (Natalie-wound Skin Appearance) Assessed, Scarring -Moisture (Natalie-wound Skin Appearance) No Abnormality, Assessed -Color (Natalie-wound Skin Appearance) No Abnormality, Assessed -Temperature (Natalie-wound Skin No Abnormality Appearance) (Pt Warm) -Tenderness on Palpation (Natalie-wound No Skin Appearance) -Ulcer Cleansing Rinsed/ Irrigated with Saline -Foul Odor after Cleansing No -Anesthetic Used 5% Lidocaine Gel WC - Nurse 2 - General Ulcer CM Notes Start: 04/01/21 08:51 Freq: Status: Active Protocol: Activity Type Activity Date Activity User E-Sign Co-Sign Detail Recorded Client Recorded Date Recorded By Document 04/01/21 09:04 RI [id number] 04/01/21 09:07 RI 04/01/21 09:04 Wound Center Nurse 2 -Time 09:04 -Correct Patient Yes -Correct Side, Site, Position Yes -Correct Procedure Yes -Procedure Performed No -Post Debridement (cm) - Length 0.1 -Post Debridement (cm) - Width 0.1 -Post Debridement (cm) - Depth 0.1 -Total Square (Post) (cm) 0.01 -Tunneling No -Undermining/Tunneling No -Wound/Ulcer Outcome Not Healed -Ulcer Cleansing Rinsed/ Irrigated with Saline -Foul Odor after Cleansing No -Bioengineered Tissue No WC - Nurse 3 - General Ulcer D/C NN Start: 04/01/21 08:51 Freq: Status: Active Protocol: Activity Type Activity Date Activity User E-Sign Co-Sign Detail Recorded Client Recorded Date Recorded By Document 04/01/21 10:04 EMILIANO [id number] 04/01/21 10:04 EMILIANO 04/01/21 10:04 Wound Care Nurse 3 -Primary Dressing Applied Promogran -Promogran 1 Pain Scale: 0-10 Numeric Is Patient Pain Free? Yes - Visit Discharge Discharge Condition Stable Ambulatory Status Ambulatory Transportation Private Auto Accompanied by self Assessment/Plan Assessment/Plan (1) Nonhealing surgical wound: CODE(S): T81.89XA - Other complications of procedures, not elsewhere classified, initial encounter (2) History of radiation therapy: CODE(S): Z92.3 - Personal history of irradiation (3) History of right breast cancer: CODE(S): Z85.3 - Personal history of malignant neoplasm of breast PLAN: No debridement completed today, very minimal area left. Continue Promogran daily. Moisten with saline. Cover with gauze and tape. Vitamin C, zinc and increased protein recommended. Continue other routine/conservative care. Her questions were answered and she was advised to call with any further questions or concerns. Follow-up in 3-4 weeks. This note was generated with [employer] software. It may contain incorrect words, spelling, and punctuation that were not noted in checking the note before signing.
[2021-04-22 09:14] VITALS: BP 134/65; PULSE 70; RESP 16; TEMP 36.2
--- NOTE | 2021-04-22 13:26 | PN.PCM_ITS ---
History of Present Illness Date of Service: 04/22/21 Chief Complaint: Nonhealing postsurgical wound History of Wound: Ms. Gomez is a 75 who presents to the wound center for continued care of her non healing surgical wound. History of breast cancer initially diagnosed in 2015 and is status post surgery, radiation and chemotherapy. Routine imaging done in September ( 2020) showed 2 nodules for which she had lumpectomy. Lumpectomy was on the 02 of October. 2 days following, she states that she had significant wound breakdown and infection. Was managed with 3 oral antibiotics and subsequently 2 weeks of IV antibiotics. Has been packing wound with sterile gauze daily. Notes some drainage but not significant per patient. Also had 12 hyperbaric oxygen treatments in [place]. She feels well at this time. Denies chills, fever, nausea, vomiting or change in bowel habit. Subjective Subjective Essentially healed. Very minimal area left. Denies any concerns at this time. Objective Data Objective Data Vital Signs: Vital Signs Temp Pulse Resp BP 97.2 F L 70 16 134/65 H 04/22/21 09:14 04/22/21 09:14 04/22/21 09:14 04/22/21 09:14 Oxygen Delivery Method Room Air Charges/Coding Visit Charges Office Visits / Consults: [id number] OV L3 Est Physical Exam Const alert, oriented x3 and no apparent distress General Appearance: cooperative and comfortable HEENT normocephalic and hearing grossly normal bilaterally Head and Scalp: normal to inspection and atraumatic Face and Sinus: normal facial exam Eyes EOMs intact bilaterally Neck General: normal visual inspection Resp Effort and Inspection: able to speak in complete sentences GI Palpation: soft; Negative for tender Skin Wounds: wounds noted Neuro oriented x3, CN's II-XII intact bilaterally and moves all extremities Psych Appearance: grossly normal Attitude: calm Speech: normal speech Mood & Affect: euthymic mood Assessment/Plan Assessment/Plan (1) Nonhealing surgical wound: CODE(S): T81.89XA - Other complications of procedures, not elsewhere classified, initial encounter (2) History of radiation therapy: CODE(S): Z92.3 - Personal history of irradiation (3) History of right breast cancer: CODE(S): Z85.3 - Personal history of malignant neoplasm of breast PLAN: No debridement completed today, healed. Continue Promogran daily until minute opening is completely closed. Vitamin C, zinc and increased protein recommended. Continue other routine/conservative care. Her questions were answered and she was advised to call with any further questions or concerns. Discharge from the wound center. Has an appointment with her Gen. Jasmin gutierrez in April. This note was generated with [employer] dictation software. It may contain incorrect words, spelling, and punctuation that were not noted in checking the note before signing.
== END 2021-04-22 09:44 | disposition home or self-care (01) ==
LOC: WC 09:15
PROVIDERS: PCP Family Medicine; Visit Provider Internal Medicine
DX: T81.89XA Other complications of procedures, not elsewhere classified, initial encounter (principal); Z92.3 Personal history of irradiation; Z85.3 Personal history of malignant neoplasm of breast
CPT/HCPCS: 99212; 99213; G0463